=== PATIENT | male | born 1965 | race Caucasian/White ===

== ENCOUNTER 2020-08-05 15:46 | Emergency (ER) | payer BC, OTHER ==
[~2020-08-05] VITALS: Ht 172.7 cm; Wt 92.7 kg
[2020-08-05 16:45] LABS: BASOPHILS % (AUTO) 1 % (0-1); EOSINOPHILS % (AUTO) 3 % (1-7); LYMPHOCYTES % (AUTO) 31 % (22-44); MEAN CORPUSCULAR HEMOGLOBIN 30.2 pg (27.5-34.5); MEAN CORPUSCULAR HGB CONC 34.5 g/dL (33.2-36.2); MEAN PLATELET VOLUME 7.8 fL (7.4-10.4); MONOCYTES % (AUTO) 9 % (2-9); NEUTROPHILS % (AUTO) 56 % (42-75); PLATELET COUNT 262 x10^3/uL (130-400); RED BLOOD COUNT 5.72 x10^6/uL (4.38-5.82); RED CELL DISTRIBUTION WIDTH 13.2 % (9.4-14.8)
[2020-08-05 16:57] LABS: ALBUMIN 3.8 g/dL (3.4-5.0); ANION GAP 8 mmol/L (5-15); CALCIUM 8.8 mg/dL (8.5-10.1); CHLORIDE 110 mmol/L (98-107)
[2020-08-05] MEDS ORDERED: SODIUM CHLORIDE FLUSH 10ML SYR IVF ONE (17:00)
[2020-08-05 17:01] LABS: ALANINE AMINOTRANSFERASE 34 U/L (12-78); ALKALINE PHOSPHATASE 86 U/L (45-117); BILIRUBIN,TOTAL 0.5 mg/dL (0.2-1.0); CREATININE 0.94 mg/dL (0.7-1.3)
[2020-08-05 17:29] LABS: MICROSCOPIC NOT IND
--- NOTE | 2020-08-05 19:24 | NUR ---
Pt ambulatory with steady gait to room from jenn
--- NOTE | 2020-08-05 19:24 | NUR ---
PT TO ROOM FROM [facility]
[2020-08-05] MEDS ORDERED: OMNIPAQUE 350 MG/ML, 100ML BOTTLE ONE (20:01)
[2020-08-05 20:37] VITALS: BP 118/84
== END 2020-08-05 21:16 | disposition home or self-care (01) ==
LOC: ED 20:40
DX: K40.91 Unilateral inguinal hernia, without obstruction or gangrene, recurrent (principal); R10.31 Right lower quadrant pain; Z90.49 Acquired absence of other specified parts of digestive tract
CPT/HCPCS: 36415; 74177; 80053; 81003; 85025; 99285; Q9967

== ENCOUNTER 2020-08-25 13:44 | Day surgery (SDC) | payer BC ==
[~2020-08-25] VITALS: Ht 172.7 cm; Wt 92.1 kg
[2020-08-25] MEDS ORDERED: FENTANYL PF 250 MCG/5ML ONE (14:15)
[2020-08-25] MEDS ORDERED: MIDAZOLAM 1 MG/ML, 2ML ONE (14:15)
[2020-08-25] MEDS ORDERED: LACTATED RINGERS 1,000 ML IV SCH (14:30)
[2020-08-25] MEDS ORDERED: CHLORHEXIDINE 15 ML UDC PO ONE (14:30)
[2020-08-25 14:40] VITALS: BP 135/89
[2020-08-25] MEDS ORDERED: MELO15TA6 PO (14:51)
[2020-08-25] MEDS ORDERED: SUCCINYLCHOLINE 20 MG/ML, 10ML ONE (15:16)
[2020-08-25] MEDS ORDERED: CEFAZOLIN 1,000 MG ONE (15:16)
[2020-08-25] MEDS ORDERED: ONDANSETRON 2MG/ML, 2ML ONE (15:16)
[2020-08-25] MEDS ORDERED: ROCURONIUM 10 MG/ML,10ML ONE (15:16)
[2020-08-25] MEDS ORDERED: PROPOFOL 10 MG/ML, 20ML ONE (15:16)
[2020-08-25] MEDS ORDERED: DEXAMETHASONE 4 MG/ML, 1ML ONE (15:16)
[2020-08-25] MEDS ORDERED: BUPIVACAINE/PF 0.5% INFIL ONE (15:43)
[2020-08-25] MEDS ORDERED: HYDR-2214 PO (16:01)
[2020-08-25] MEDS ORDERED: ONDA4TAB7 PO (16:01)
[2020-08-25] MEDS ORDERED: FENTANYL PF 100 MCG/2ML ONE (16:15)
[2020-08-25] MEDS: FENTANYL PF 100 MCG/2ML IV PRN ×2 (16:20→16:25)
[2020-08-25] MEDS ORDERED: ALBUTEROL SULFATE 2.5 MG/3 ML NPPB PRN (16:30)
[2020-08-25] MEDS ORDERED: MEPERIDINE/PF 25MG/0.5ML IVPush PRN (16:30)
[2020-08-25] MEDS ORDERED: morphine SULFATE 10 MG/ML, 1ML IVPush PRN (16:30)
[2020-08-25] MEDS ORDERED: METOCLOPRAMIDE 5 MG/ML, 2ML IV PRN (16:30)
[2020-08-25] MEDS ORDERED: HYDROcodone/APAP 7.5-325MG/15ML UDC PO PRN (16:30)
[2020-08-25] MEDS ORDERED: KETOROLAC 30 MG/1 ML IVPush PRN (16:30)
[2020-08-25] MEDS ORDERED: DIAZEPAM 5 MG/ML, 2ML IV PRN ×2 (16:30)
[2020-08-25] MEDS ORDERED: DIPHENHYDRAMINE 50 MG/ML, 1ML IVPush PRN (16:30)
[2020-08-25] MEDS ORDERED: ONDANSETRON 2MG/ML, 2ML IVPush PRN (16:30)
[2020-08-25] MEDS ORDERED: LABETALOL 5MG/ML, 20ML IV PRN (16:30)
[2020-08-25] MEDS ORDERED: KETOROLAC 30 MG/1 ML IV PRN (16:30)
[2020-08-25] MEDS ORDERED: HYDROmorphone 1 MG/ML, 1ML INJ IV PRN (16:30)
[2020-08-25] MEDS ORDERED: hydrALAzine 20 MG/ML, 1ML IV PRN (16:30)
[2020-08-25] MEDS ORDERED: PROMETHAZINE 25 MG/ML, 1ML IV PRN (16:30)
[2020-08-25] MEDS ORDERED: OXYcodone 5 MG/5 ML ORAL.SOL UDC PO PRN (16:30)
[2020-08-25] MEDS ORDERED: OXYcodone 5 MG/5 ML ORAL.SOL UDC ONE (16:50)
== END 2020-08-25 18:45 | disposition home or self-care (01) ==
LOC: OR 13:44
PROVIDERS: ATTEND Surgery
DX: K40.90 Unilateral inguinal hernia, without obstruction or gangrene, not specified as recurrent (principal); D17.6 Benign lipomatous neoplasm of spermatic cord; I10 Essential (primary) hypertension; E66.9 Obesity, unspecified; F12.90 Cannabis use, unspecified, uncomplicated; Z20.822 Contact with and (suspected) exposure to COVID-19; Z68.30 Body mass index [BMI] 30.0-30.9, adult; Z79.1 Long term (current) use of non-steroidal anti-inflammatories (NSAID); Z79.899 Other long term (current) drug therapy
CPT/HCPCS: 49650; 87635; C1781; J2250; J3010; J7120; S2900; J0690; J1100; J2405; J2704; J0330